=== PATIENT | male | born 1985 | race Caucasian/White ===

== ENCOUNTER → 2025-03-02 | Outpatient (CLI) | payer OTHER ==
--- NOTE | 2025-03-02 13:31 | CT ---
CT right ankle HISTORY: Pain COMPARISON: None TECHNIQUE: Multiple axial images are obtained through the ankle without contrast. FINDINGS: There is a slightly oblique mildly displaced fracture of the medial malleolus at the level of the tib ial plafond. The remaining osseous structures are intact. Soft tissues are unremarkable. IMPRESSION: Displaced fracture of the medial malleolus at the level of the tibial plafond. [facility], , 03/02/2025 1:29 PM
== END | disposition home or self-care (01) ==
LOC: RADCTMAIN 12:47
PROVIDERS: ATTEND Podiatrist
DX: S82.51XA Displaced fracture of medial malleolus of right tibia, initial encounter for closed fracture (principal); S82.891A Other fracture of right lower leg, initial encounter for closed fracture